=== PATIENT | male | born 1955 | race Caucasian/White ===

== ENCOUNTER 2018-03-09 08:35 | Day surgery (SDC) | payer OTHER ==
[2018-03-09] MEDS ORDERED: PROPOFOL 20 ML ONE ×3 (09:33)
[2018-03-09 09:35] VITALS: BMI 27.1
[2018-03-09 10:43] VITALS: TEMP 97.8
[2018-03-09 11:35] VITALS: BP 122/85; PULSE 64
--- NOTE | 2018-03-12 14:57 | PATH ---
Surgical Pathology Report Patient Name: CASE TATE [facility] Rec. #: [id number] /Age/Gender: 1955 (Age: 63) / M Account: [id number] Location: U-ENDOSCOPY Taken: 03/09/2018 Received: 03/09/2018 Reported: 03/12/2018 Physicians: Dada Yan M.D. Specimen(s) Received A: BX 2ND PORTION DUODENUM AND BULB B: BX GASTRIC ANTRUM C: BX GE JUNCTION D: BX POLYP RIGHT COLON E: POLYP SIGMOID F: RECTAL POLYP Clinical History History of polyp, screening, rule out ulcer, reflux Postoperative diagnosis: Hiatal hernia, GERD, atrophic gastritis, diverticulosis, polyps Final Diagnosis A. DUODENUM, SECOND PORTION AND BULB, BIOPSY: DUODENAL MUCOSA WITHOUT SIGNIFICANT PATHOLOGIC FINDINGS. B. STOMACH, ANTRUM, BIOPSY: GASTRIC ANTRAL MUCOSA WITH MILD CHRONIC GASTRITIS. IMMUNOHISTOCHEMICAL STAIN FOR H. PYLORI IS NEGATIVE. C. GASTROESOPHAGEAL (GE) JUNCTION, BIOPSY: SQUAMOUS MUCOSA WITH VASCULAR CONGESTION AND CHANGES OF MILD REFLUX ESOPHAGITIS. NO COLUMNAR MUCOSA, INTESTINAL METAPLASIA, OR DYSPLASIA IDENTIFIED. D. COLON, RECTUM, POLYP, BIOPSY: HYPERPLASTIC POLYP. E. SIGMOID COLON, BIOPSY: HYPERPLASTIC POLYP. F. RECTUM, POLYP, BIOPSY: TUBULAR ADENOMA. Electronically Signed Kaylee Broussard M.D. Gross Description A. Received in formalin, labeled "biopsy second portion of duodenum and bulb" are 4 garcía, irregular portions of soft tissue ranging from 0.1-0.5 cm. in greatest dimension. The specimens are submitted in toto in one cassette. B. Received in formalin, labeled "gastric antrum" are 4 garcía, irregular portions of soft tissue ranging from 0.3-1.0 cm. in greatest dimension. The specimens are submitted in toto in one cassette. C. Received in formalin, labeled "GE junction" are 4 garcía, irregular portions of soft tissue ranging from 0.2-0.8 cm. in greatest dimension. The specimens are submitted in toto in one cassette. D. Received in formalin, labeled "polyp right colon" are 3 garcía, irregular portions of soft tissue ranging from 0.2-0.3 cm. in greatest dimension. The specimens are submitted in toto in one cassette. E. Received in formalin labeled "sigmoid polyp," is a 0.7 x 0.4 x 0.3 cm brown, polypoid portion of soft tissue. The specimen is submitted in toto in one cassette. F. Received in formalin, labeled "polyp rectum" are 3 garcía, irregular portions of soft tissue ranging from 0.1-0.2 cm. in greatest dimension. The specimens are submitted in toto in one cassette. 03/09/201803/09/2018
== END 2018-03-09 11:39 | disposition home or self-care (01) ==
LOC: JASU-ENDO 08:35
PROVIDERS: ATTEND Internal Medicine Gastroenterology
PROC: 0DBF8ZX Excision of Right Large Intestine, Via Natural or Artificial Opening Endoscopic, Diagnostic (ICD-10-PCS; 2018-03-09)
PROC: 0DBP8ZX Excision of Rectum, Via Natural or Artificial Opening Endoscopic, Diagnostic (ICD-10-PCS; 2018-03-09)
PROC: 0DB98ZX Excision of Duodenum, Via Natural or Artificial Opening Endoscopic, Diagnostic (ICD-10-PCS; 2018-03-09)
PROC: 0DB68ZX Excision of Stomach, Via Natural or Artificial Opening Endoscopic, Diagnostic (ICD-10-PCS; 2018-03-09)
PROC: 0DB28ZX Excision of Middle Esophagus, Via Natural or Artificial Opening Endoscopic, Diagnostic (ICD-10-PCS; 2018-03-09)
PROC: 0DBN8ZX Excision of Sigmoid Colon, Via Natural or Artificial Opening Endoscopic, Diagnostic (ICD-10-PCS; principal; 2018-03-09 09:30)
DX: Z12.11 Encounter for screening for malignant neoplasm of colon (principal); K63.5 Polyp of colon; K62.1 Rectal polyp; K64.8 Other hemorrhoids; Z86.010 Personal history of colon polyps; R19.5 Other fecal abnormalities; K21.9 Gastro-esophageal reflux disease without esophagitis; K44.9 Diaphragmatic hernia without obstruction or gangrene; K29.70 Gastritis, unspecified, without bleeding
CPT/HCPCS: 88305-TC; 88342-TC

== ENCOUNTER 2022-11-04 04:27 | Day surgery (SDC) | payer BC ==
[2022-11-02 13:29] VITALS: BMI 26.4
[2022-11-04] MEDS ORDERED: KETAMINE HCL 500 MG/10 ML VIAL ONE (07:22)
[2022-11-04 08:37] VITALS: TEMP 98.7
[2022-11-04 09:17] VITALS: BP 133/82; PULSE 67; RESP 12
== END 2022-11-04 09:28 | disposition home or self-care (01) ==
LOC: JASU-ENDO 04:27
PROVIDERS: ATTEND Internal Medicine Gastroenterology
PROC: 0DJD8ZZ Inspection of Lower Intestinal Tract, Via Natural or Artificial Opening Endoscopic (ICD-10-PCS; principal; 2022-11-04 08:00)
DX: Z12.11 Encounter for screening for malignant neoplasm of colon (principal); D12.5 Benign neoplasm of sigmoid colon; K57.30 Diverticulosis of large intestine without perforation or abscess without bleeding; K64.8 Other hemorrhoids; K64.4 Residual hemorrhoidal skin tags; K92.1 Melena; Z86.010 Personal history of colon polyps
CPT/HCPCS: 88305-TC